=== PATIENT | female | born 1970 | race Caucasian/White ===

== ENCOUNTER 2020-07-07 21:13 | Emergency (ER) | payer BC ==
[~2020-07-07] VITALS: Ht 167.6 cm; Wt 78.9 kg
[2020-07-07 21:50] LABS: ABSOLUTE MONOCYTES 0.1 thou/uL (0.0-1.2); ABSOLUTE NEUTROPHILS 6.2 thou/uL (1.6-8.1); BASOPHILS 0.4 %; EOSINOPHILS 0.1 %; HEMATOCRIT 39.7 % (37.0-47.0); HEMOGLOBIN 13.5 gm/dL (12.0-15.0); LYMPHOCYTES 13.1 %; MCH 28.7 pg (26.0-34.0); MCV 84.4 fL (80.0-100.0); MONOCYTES 1.6 %; NUCLEATED RBCS 0 /100WBC; PLATELET COUNT* 289 thou/uL (150-400); POLYS 84.8 %; RBC 4.71 mil/uL (4.20-5.00); RDW-CV 13.3 % (10.5-14.5); WBC 7.3 thou/uL (4.0-11.0)
[2020-07-07 22:08] LABS: CALCIUM 9.2 mg/dL (8.5-10.1); CREATININE 1.1 mg/dL (0.6-1.3)
[2020-07-07 22:12] LABS: ALBUMIN 4.4 g/dL (3.4-5.0); TOTAL BILIRUBIN 0.2 mg/dL (<0.1-1.0); TOTAL PROTEIN 9.1 g/dL (6.4-8.2)
[2020-07-08] MEDS ORDERED: DIPHENHIST50 MG PO (00:44)
[2020-07-08 01:04] VITALS: BP 155/71
--- NOTE | 2020-07-08 17:46 | EKG ---
[place] [address] ELECTROCARDIOGRAM REPORT Name: HANNAHSELMA L Room: [facility]#: [id number] Admission: 07/07/20 Attend Phys: Discharge: 07/08/20 Date of : 68 Date of Service: 07/07/202150 Report #: [id number] THIS REPORT FOR: //name// [facility] ED Test Date: 2020-07-07 Test Time: 21:51:26 Pat Name: SELMA YOUNG Department: Room: Gender: F Energy Systems Engineer: SUDHAKAR : 1970 Requested By: Ole Stearns Order Number: [id number] MD: Camilo Otto Measurements Intervals [place] Rate: 65 P: 43 AR: 171 QRS: 37 QRSD: 106 T: 59 QT: 422 QTc: 439 Interpretive Statements Sinus rhythm Consider anterior infarct Artifact in lead(s) I,II,aVR,aVL,aVF No previous ECG available for comparison Electronically Signed On 07-08-2020 17:46:39 CDT by Camilo Otto [email or web address] <ELECTRONICALLY SIGNED> By: Camilo Otto MD, FACC 07/08/20 1746 50 50 Camilo Otto MD, FACC /EPI
== END 2020-07-08 01:15 | disposition home or self-care (01) ==
LOC: M.ERS 21:13
PROVIDERS: Emergency Medicine Emergency Medical Services
DX: J02.9 Acute pharyngitis, unspecified (principal); T78.40XA Allergy, unspecified, initial encounter; X58.XXXA Exposure to other specified factors, initial encounter